=== PATIENT | female | born 1995 | race Hispanic/Latino ===

== ENCOUNTER → 2020-03-01 | Day surgery (SDC) | payer SELFPAY ==
[~2020-03-01] MED LIST: ACETAMINOPHEN/CODEINE 300MG - 30MG TAB ONE; BACITRACIN 50,000 UNIT VIAL ONE; BUPIVACAINE HCL 0.5% INJ 30 ML VIAL INJ ONE; CEFAZOLIN SOD 1 GM/NS 50ML 50 ML IV ONE; ETOMIDATE 2 MG/ML 10 ML INJ IV ONE; FENTANYL CITRATE/PF 100MCG/2 ML INJ ONE; HYDROMORPHONE 1MG/1ML INJ ONE; KETOROLAC TROMETHAMINE 30 MG/ML VIAL ONE; LIDOCAINE HCL 2% JELLY 5 ML TUBE ONE; LIDOCAINE HCL 2% LOCAL INJ 5 ML SDV VIAL INJ ONE; MIDAZOLAM HCL 2 MG/2 ML VIAL ONE; MUPIROCIN 2% OINT 22 GM TUBE ONE; ONDANSETRON HCL INJ 2MG/ML 2ML 2 MG/ML VIAL ONE; SEVOFLURANE INHAL SOLN 250 ML PEN BTL ONE; TRINESSA PO; TYLENOL WITH C1 EACH PO; XYZAL5 MG PO
[2020-03-01 14:06] VITALS: BP 116/90
--- NOTE | 2020-03-01 21:36 | Operative Report ---
DATE OF PROCEDURE: 03/01/2020 SURGEON: Nehemiah Ponce MD PROCESS ANALYST: Rao Chambers, certified PA. PREOPERATIVE DIAGNOSIS: Right ankle trimalleolar fracture. POSTOPERATIVE DIAGNOSIS: Right ankle trimalleolar fracture. PROCEDURE: Open reduction and internal fixation, right ankle (medial/lateral/syndesmosis). INDICATIONS: The patient is a 24-year-old young lady, who sustained a severe fracture of her right ankle in a skateboarding accident. She has a trimalleolar fracture with widening of the ankle mortise. The findings and options have been discussed at length with the patient. I have recommended open reduction with internal fixation. The risks and benefits have been explained. The fracture is a little over 2-week-old. We are working to get this into the operating room as soon as possible. DESCRIPTION OF PROCEDURE: The patient was brought to the operating room and placed under general anesthetic. She received prophylactic antibiotics in the holding area. Her right lower extremity was prepped and draped in a sterile manner. A preoperative time-out was performed. The extremity was exsanguinated and a proximal tourniquet was inflated to 300 mmHg. An incision was made over the distal lateral aspect of the right leg. The fracture site was carefully exposed. Minimal periosteal stripping was performed. A 7-hole one-third semitubular plate was placed across the fracture. A reduction clamp was placed. This was fixed with multiple compression screws. Attention was directed towards the medial malleolus. An intraoperative C-arm image intensifier was used at this time, this showed persistent widening of the ankle mortise. I elected at this time to place an Arthrex tightrope syndesmosis repair. A drill hole was placed across the distal fibula into the tibia and out the medial cortex of the tibia. The tightrope in the button was passed and deployed over the medial cortex of the distal tibia. The ankle was held in dorsiflexion while the syndesmosis was reduced. Intraoperative x-rays showed nice reduction of the ankle mortise, this also anatomically reduced the medial malleolus. Because she had an abrasion over her medial ankle, I elected to fix this with a single percutaneous screw. A 2.5 mm drill was placed into the tip of the medial malleolus and advanced. A 35 mm partially-threaded cancellous screw was placed. Nice secure fixation and an anatomic position were obtained. Final x-rays were obtained. The wounds were irrigated and closed. Subcuticular Vicryl and nylon stitches were used to close the distal fibular incision. A sterile bandage and a U-splint and foot plate were applied. The patient was extubated and transported to the recovery room in stable condition. There was no blood loss and all needle and sponge counts were correct. Nehemiah Ponce MD DR/JEANNE /[id number]
== END | disposition home or self-care (01) ==
LOC: OR 10:39
PROVIDERS: ATTEND Specialist
DX: S82.851A Displaced trimalleolar fracture of right lower leg, initial encounter for closed fracture (principal); V00.131A Fall from skateboard, initial encounter; Z01.812 Encounter for preprocedural laboratory examination; Z11.59 Encounter for screening for other viral diseases
CPT/HCPCS: 27822; 81025; C1713 ×4; J0690; J1170; J1885; J2001 ×2; J2250; J2405; J3010; U0002; 76000